=== PATIENT | female | born 1990 | race African-American/Black ===

== ENCOUNTER 2020-06-05 11:49 | Observation (INO) | payer MEDICAID ==
[~2020-06-05] VITALS: Ht 165.1 cm; Wt 103.4 kg
[2020-06-05 13:49] LABS: BASOPHILS % 0.6 % (0.0-2.0); HEMATOCRIT. 32.1 % (36.0-48.0); HEMOGLOBIN. 10.9 g/dL (12.0-16.0); LYMPHOCYTES % 14.7 % (20.0-50.0); MEAN CORPUSCULAR HEMOGLOBIN 29.8 pg (28.0-32.0); MEAN CORPUSCULAR VOLUME 87.8 fL (81.0-99.0); MEAN PLATELET VOLUME 8.2 fl (7.4-10.4); MONOCYTES % 5.6 % (2.0-8.0); NEUTROPHILS % 78.1 % (40.0-76.0); PLATELET 194 x1000/uL (130-400); RED BLOOD CELL COUNT 3.65 mill/uL (4.2-5.4); RED CELL DISTRIBUTION WIDTH 13.8 % (11.6-14.6)
[2020-06-05 13:53] LABS: CLARITY URINE CLOUDY (CLEAR); COLOR URINE YELLOW (YELLOW); KETONES URINE 1+ (NEGATIVE); LEUKOCYTE ESTERASE URINE 1+ (NEGATIVE); NITRITE URINE NEGATIVE (NEGATIVE); OCCULT BLOOD URINE NEGATIVE (NEGATIVE); PH URINE 6.5 (4.5-8.0); PROTEIN URINE NEGATIVE (NEGATIVE); SPECIFIC GRAVITY URINE 1.016 (1.005-1.030)
[2020-06-05 14:03] LABS: CHLORIDE 107 mEq/L (98-107)
[2020-06-05] MEDS ORDERED: PNV1TABL76 MT (14:16)
[2020-06-05 14:28] LABS: *AMPHETAMINES SCREEN URINE NEGATIVE (NEGATIVE); *BARBITURATES SCREEN URINE NEGATIVE (NEGATIVE); *BENZODIAZEPINES SCREEN URINE NEGATIVE (NEGATIVE); *COCAINE SCREEN URINE NEGATIVE (NEGATIVE)
[2020-06-05 14:29] LABS: METHADONE URINE SCREEN NEGATIVE (NEGATIVE); OPIATES URINE SCREEN NEGATIVE (NEGATIVE); PHENCYCLIDINE URINE SCREEN NEGATIVE (NEGATIVE)
[2020-06-05 14:30] LABS: CANNABINOID URINE SCREEN NEGATIVE (NEGATIVE)
[2020-06-05 15:04] LABS: HEPATITIS B SURFACE ANTIGEN NEGATIVE
== END 2020-06-05 15:20 | disposition home or self-care (01) ==
LOC: LAB 11:49 → 8 EST A/PP 11:50
PROVIDERS: ADMIT Obstetrics & Gynecology; ATTEND Obstetrics & Gynecology
DX: O26.893 Other specified pregnancy related conditions, third trimester (principal); Z20.828 Contact with and (suspected) exposure to other viral communicable diseases; R10.30 Lower abdominal pain, unspecified; O62.9 Abnormality of forces of labor, unspecified; O34.13 Maternal care for benign tumor of corpus uteri, third trimester; D25.9 Leiomyoma of uterus, unspecified; Z3A.39 39 weeks gestation of pregnancy; Z79.899 Other long term (current) drug therapy
CPT/HCPCS: 36415; 59025; 76805; 76818; 80053; 80305; 81003; 85025; 86592; 86703; 86762; 86850; 86900; 86901; 87340; G0378; U0003; 99281

== ENCOUNTER 2020-06-08 05:12 | Inpatient (IN) | payer MEDICAID ==
[~2020-06-08] VITALS: Ht 165.1 cm; Wt 103.4 kg
[~2020-06-08 05:12] MED LIST: PNV1TABL76 MT
[2020-06-08] MEDS ORDERED: DEXT 5%/LR + PITOCIN 20UNITS/L 1,000 ML IV SCH (05:52)
[2020-06-08] MEDS ORDERED: CARBOPROST TROMETHAMINE 250 MCG/ML AMPUL IM PRN (06:00)
[2020-06-08] MEDS ORDERED: METHYLERGONOVINE MALEATE 0.2 MG/ML IM PRN (06:00)
[2020-06-08] MEDS: LACTATED RINGERS 1,000 ML IV SCH ×2 (06:10→07:02)
[2020-06-08 07:07] LABS: INR 0.9; PARTIAL THROMBOPLASTIN TIME 25.9 sec (23.4-31.0); PROTHROMBIN TIME 9.9 sec (9.6-11.0)
[2020-06-08] MEDS ORDERED: KETOROLAC 60MG/2ML VIAL IM ONE (08:35)
[2020-06-08] MEDS ORDERED: CEFAZOLIN SODIUM 1000MG/VIAL ONE (08:36)
[2020-06-08] MEDS ORDERED: METOCLOPRAMIDE HCL 10MG/2ML VIAL ONE (08:36)
[2020-06-08] MEDS ORDERED: ONDANSETRON HCL 4MG/2ML INJ ONE (08:36)
[2020-06-08] MEDS ORDERED: OXYTOCIN 10 UNITS/ML 1ML ONE ×2 (08:36→10:22)
[2020-06-08] MEDS ORDERED: SODIUM CHLORIDE 0.9% 10ML VIAL ONE ×2 (08:36→08:37)
[2020-06-08] MEDS ORDERED: PHENYLEPHRINE HCL 10 MG/ML 1ML (IV VIAL) IV ONE (08:36)
[2020-06-08] MEDS ORDERED: FENTANYL CITRATE/PF 50MCG/ML 2ML VIAL ONE (08:40)
[2020-06-08] MEDS ORDERED: MORPHINE SULFATE/PF 1MG/ML 10ML AMP ONE (08:41)
[2020-06-08] MEDS ORDERED: HYDROCODONE/ACETAMINOPHEN 5/325MG TABLET PO PRN (11:00)
[2020-06-08] MEDS ORDERED: IBUPROFEN 400MG TABLET PO PRN (11:00)
[2020-06-08] MEDS ORDERED: ONDANSETRON HCL 4MG/2ML INJ IM PRN (11:00)
[2020-06-08] MEDS ORDERED: DIPHENHYDRAMINE 50MG/ML VIAL IM PRN (11:00)
[2020-06-08] MEDS ORDERED: KETOROLAC 30MG/ML VIAL IV PRN (11:00)
[2020-06-08] MEDS ORDERED: ONDANSETRON HCL 4MG/2ML INJ IV PRN (11:00)
[2020-06-08] MEDS ORDERED: NALOXONE HCL 0.4 MG/ML 1ML VIAL IV PRN (11:00)
[2020-06-08] MEDS ORDERED: LANOLIN OINT 7GM TUBE TOP PRN (11:00)
[2020-06-08] MEDS: DEXT 5%/LR + PITOCIN 20UNITS/L 1,000 ML IV SCH ×2 (11:07→21:08)
[2020-06-08 13:45] VITALS: BP 119/71
[2020-06-08] MEDS ORDERED: LACTATED RINGERS 1,000 ML IV SCH (14:30)
[2020-06-08 14:45] VITALS: BP 110/71
[2020-06-08 17:00] VITALS: BP 106/68
[2020-06-08 20:00] VITALS: BP 117/74
[2020-06-08] MEDS ORDERED: DIPHENHYDRAMINE 25MG CAPSULE PO PRN (21:00)
[2020-06-09] VITALS: BP 119/77
[2020-06-09 04:00] VITALS: BP 118/79
[2020-06-09] MEDS: IBUPROFEN 800MG TABLET PO PRN ×3 (05:38→21:51)
[2020-06-09 07:45] VITALS: BP 114/73
[2020-06-09 08:37] LABS: BASOPHILS % 0.6 % (0.0-2.0); EOSINOPHILS % 0.5 % (0.0-5.0); HEMATOCRIT. 30.8 % (36.0-48.0); HEMOGLOBIN. 10.5 g/dL (12.0-16.0); LYMPHOCYTES % 7.9 % (20.0-50.0); MEAN CORPUSCULAR HEMOGLOBIN 30.1 pg (28.0-32.0); MEAN CORPUSCULAR VOLUME 88.7 fL (81.0-99.0); MEAN PLATELET VOLUME 8.2 fl (7.4-10.4); MONOCYTES % 5.7 % (2.0-8.0); NEUTROPHILS % 85.3 % (40.0-76.0); PLATELET 185 x1000/uL (130-400); RED BLOOD CELL COUNT 3.47 mill/uL (4.2-5.4); RED CELL DISTRIBUTION WIDTH 14.1 % (11.6-14.6)
[2020-06-09] MEDS: SIMETHICONE 80MG TABLET CHEW PO SCH ×2 (08:56→21:52)
[2020-06-09] MEDS: PRENATAL VIT/FE FUMARATE/FA TABLET PO SCH (08:56)
[2020-06-09] MEDS: FERROUS SULFATE 325MG TABLET PO SCH (08:57)
[2020-06-09 15:00] VITALS: BP 116/76
[2020-06-09 19:30] VITALS: BP 100/70
[2020-06-09] MEDS: DOCUSATE SODIUM 100MG CAPSULE PO SCH ×2 (21:00→21:51)
[2020-06-09] MEDS: MAGNESIUM/ALUMINUM HYDROXIDE/SIMETHICONE 30ML UDC PO SCH (21:50)
[2020-06-09] MEDS: BISACODYL 10MG SUPP PR PRN ×2 (21:52→22:21)
[2020-06-09 23:45] VITALS: BP 112/72
[2020-06-10 04:00] VITALS: BP 111/72
[2020-06-10 08:00] VITALS: BP 128/86
[2020-06-10] MEDS: SIMETHICONE 80MG TABLET CHEW PO SCH ×2 (08:39→18:17)
[2020-06-10] MEDS: FERROUS SULFATE 325MG TABLET PO SCH (08:39)
[2020-06-10] MEDS: PRENATAL VIT/FE FUMARATE/FA TABLET PO SCH (08:39)
[2020-06-10] MEDS: MAGNESIUM/ALUMINUM HYDROXIDE/SIMETHICONE 30ML UDC PO SCH ×2 (08:40→18:17)
[2020-06-10] MEDS: IBUPROFEN 800MG TABLET PO PRN ×2 (08:40→18:17)
[2020-06-10 17:55] VITALS: BP 135/91
[2020-06-10 19:30] VITALS: BP 135/93
[2020-06-11] MEDS: MAGNESIUM/ALUMINUM HYDROXIDE/SIMETHICONE 30ML UDC PO SCH (00:02)
[2020-06-11] MEDS: IBUPROFEN 800MG TABLET PO PRN ×2 (00:03→07:58)
[2020-06-11] MEDS: SIMETHICONE 80MG TABLET CHEW PO SCH ×2 (00:03→07:58)
[2020-06-11] MEDS ORDERED: IBUP-2030 PO (05:21)
[2020-06-11] MEDS ORDERED: HYDR-4001 PO (05:21)
[2020-06-11] MEDS ORDERED: HYDR-4001 MT (05:25)
[2020-06-11] MEDS ORDERED: ACETAMINOPHEN WITH CODEINE 300/30MG TABLET PO PRN (06:15)
[2020-06-11] MEDS: PRENATAL VIT/FE FUMARATE/FA TABLET PO SCH (07:58)
[2020-06-11] MEDS: FERROUS SULFATE 325MG TABLET PO SCH (07:58)
[2020-06-11 08:00] VITALS: BP 130/72
== END 2020-06-11 12:45 | disposition home or self-care (01) | DRG 540 ==
LOC: OBSVTOIN 05:12 → 8 EST LDRP 05:12 → 8EST 13:31
PROVIDERS: ADMIT Obstetrics & Gynecology; ATTEND Obstetrics & Gynecology
PROC: 10D00Z1 Extraction of Products of Conception, Low, Open Approach (ICD-10-PCS; principal; 2020-06-08)
PROC: 0UB90ZZ Excision of Uterus, Open Approach (ICD-10-PCS; 2020-06-08)
DX: O34.211 Maternal care for low transverse scar from previous cesarean delivery (principal); O99.02 Anemia complicating childbirth; D64.9 Anemia, unspecified; O99.214 Obesity complicating childbirth; E66.9 Obesity, unspecified; O99.824 Streptococcus B carrier state complicating childbirth; O34.13 Maternal care for benign tumor of corpus uteri, third trimester; D25.0 Submucous leiomyoma of uterus; Z37.0 Single live birth; Z3A.09 9 weeks gestation of pregnancy; Z79.899 Other long term (current) drug therapy
CPT/HCPCS: 36415; 85025; 86850; 86900; 86920; 88307; J0690; J1200; J1885; J2274; J2370; J2405; J2590; J2765; J3010; J7120

== ENCOUNTER 2021-06-05 16:41 | Inpatient (IN) | payer MEDICAID, OTHER ==
[~2021-06-05] VITALS: Ht 165.1 cm; Wt 117.0 kg
[~2021-06-05 16:41] MED LIST changes: +IBUP-2030 PO
[2021-06-05] MEDS ORDERED: METHYLERGONOVINE MALEATE 0.2 MG/ML IM PRN (20:00)
[2021-06-05] MEDS ORDERED: DEXT 5%/LR + PITOCIN 20UNITS/L 1,000 ML IV SCH (20:00)
[2021-06-05] MEDS: LACTATED RINGERS 1,000 ML IV SCH ×3 (20:07→20:56)
[2021-06-05] MEDS ORDERED: LACTATED RINGERS 1,000 ML IV SCH (20:08)
[2021-06-05 20:39] LABS: BASOPHILS % 0.5 % (0.0-2.0); EOSINOPHILS % 0.5 % (0.0-5.0); HEMATOCRIT. 33.1 % (36.0-48.0); HEMOGLOBIN. 11.3 g/dL (12.0-16.0); LYMPHOCYTES % 11.7 % (20.0-50.0); MEAN CORPUSCULAR VOLUME 87.7 fL (81.0-99.0); MEAN PLATELET VOLUME 8.3 fl (7.4-10.4); MONOCYTES % 5.8 % (2.0-8.0); NEUTROPHILS % 81.5 % (40.0-76.0); PLATELET 231 x1000/uL (130-400); RED BLOOD CELL COUNT 3.78 mill/uL (4.2-5.4); RED CELL DISTRIBUTION WIDTH 14.6 % (11.6-14.6)
[2021-06-05 20:48] LABS: INR 0.9; PARTIAL THROMBOPLASTIN TIME 26.1 sec (23.4-31.0)
[2021-06-05] MEDS ORDERED: MORPHINE SULFATE/PF 1MG/ML 10ML AMP ONE (21:19)
[2021-06-05] MEDS ORDERED: ESMOLOL HCL 10MG/ML 10ML VIAL IV ONE (22:09)
[2021-06-05] MEDS ORDERED: ONDANSETRON HCL 4MG/2ML INJ ONE (22:09)
[2021-06-05] MEDS ORDERED: METOCLOPRAMIDE HCL 10MG/2ML VIAL ONE (22:09)
[2021-06-05] MEDS ORDERED: KETOROLAC 60MG/2ML VIAL IM ONE (22:09)
[2021-06-05] MEDS ORDERED: DEXAMETHASONE 4MG/ML 1ML VIAL ONE (22:09)
[2021-06-05] MEDS ORDERED: CEFAZOLIN SODIUM 1000MG/VIAL ONE (22:09)
[2021-06-05] MEDS ORDERED: OXYTOCIN 10 UNITS/ML 1ML ONE (22:09)
[2021-06-05] MEDS ORDERED: MEPERIDINE HCL/PF 25MG/ML CPJ IV PRN (22:15)
[2021-06-05] MEDS ORDERED: FENTANYL CITRATE/PF 50MCG/ML 2ML VIAL IV PRN (22:15)
[2021-06-05] MEDS ORDERED: ONDANSETRON HCL 4MG/2ML INJ IM PRN (22:15)
[2021-06-05] MEDS ORDERED: DIPHENHYDRAMINE 50MG/ML VIAL IM PRN (22:15)
[2021-06-05] MEDS ORDERED: NALOXONE HCL 0.4 MG/ML 1ML VIAL IV PRN (22:15)
[2021-06-05 22:18] LABS: HEPATITIS B SURFACE ANTIGEN NEGATIVE
[2021-06-05] MEDS ORDERED: KETOROLAC 30MG/ML VIAL IV PRN (22:45)
[2021-06-05] MEDS ORDERED: HYDROCODONE/ACETAMINOPHEN 5/325MG TABLET PO PRN (22:45)
[2021-06-05] MEDS ORDERED: RHO(D) IMMUNE GLOBULIN 300 MCG/SYR IM PRN (22:45)
[2021-06-05] MEDS ORDERED: IBUPROFEN 400MG TABLET PO PRN (22:45)
[2021-06-05] MEDS ORDERED: BISACODYL 10MG SUPP PR PRN (22:45)
[2021-06-05 23:39] LABS: CLARITY URINE CLEAR (CLEAR); COLOR URINE DARK YELLOW (YELLOW); KETONES URINE 4+ (NEGATIVE); LEUKOCYTE ESTERASE URINE TRACE (NEGATIVE); NITRITE URINE NEGATIVE (NEGATIVE); OCCULT BLOOD URINE NEGATIVE (NEGATIVE); PROTEIN URINE TRACE (NEGATIVE); SPECIFIC GRAVITY URINE 1.023 (1.005-1.030)
[2021-06-05] MEDS: DEXT 5%/LR + PITOCIN 20UNITS/L 1,000 ML IV SCH (23:48)
[2021-06-05 23:55] LABS: *AMPHETAMINES SCREEN URINE NEGATIVE (NEGATIVE); *BARBITURATES SCREEN URINE NEGATIVE (NEGATIVE); *BENZODIAZEPINES SCREEN URINE NEGATIVE (NEGATIVE); CANNABINOID URINE SCREEN NEGATIVE (NEGATIVE); METHADONE URINE SCREEN NEGATIVE (NEGATIVE); OPIATES URINE SCREEN NEGATIVE (NEGATIVE); PHENCYCLIDINE URINE SCREEN NEGATIVE (NEGATIVE)
[2021-06-05 23:58] LABS: *COCAINE SCREEN URINE NEGATIVE (NEGATIVE)
[2021-06-06] MEDS ORDERED: LABETALOL HCL 5MG/ML VIAL 20ML IV PRN ×3 (00:30)
[2021-06-06 01:51] LABS: HEMATOCRIT. 35.9 % (36.0-48.0); MEAN CORPUSCULAR HEMOGLOBIN 29.8 pg (28.0-32.0); MEAN CORPUSCULAR VOLUME 89.2 fL (81.0-99.0); MEAN PLATELET VOLUME 8.3 fl (7.4-10.4); PLATELET 237 x1000/uL (130-400); RED BLOOD CELL COUNT 4.03 mill/uL (4.2-5.4); RED CELL DISTRIBUTION WIDTH 14.1 % (11.6-14.6)
[2021-06-06 01:56] LABS: CHLORIDE 107 mEq/L (98-107); PLATELET ESTIMATE NORMAL
[2021-06-06] MEDS: MAGNESIUM 20 G PREMIX (L & D) 500 ML IV SCH ×2 (02:04→18:33)
[2021-06-06 02:07] LABS: D-DIMER 12.66 mg/L FEU (<0.50); INR 0.9; PARTIAL THROMBOPLASTIN TIME 26.8 sec (23.4-31.0); PROTHROMBIN TIME 10.2 sec (9.6-11.0)
[2021-06-06 07:30] VITALS: BP 136/86
[2021-06-06 08:32] LABS: HEMATOCRIT. 32.9 % (36.0-48.0); MEAN CORPUSCULAR HEMOGLOBIN 29.5 pg (28.0-32.0); MEAN CORPUSCULAR VOLUME 88.1 fL (81.0-99.0); MEAN PLATELET VOLUME 8.2 fl (7.4-10.4); PLATELET 223 x1000/uL (130-400); RED BLOOD CELL COUNT 3.73 mill/uL (4.2-5.4); RED CELL DISTRIBUTION WIDTH 14.8 % (11.6-14.6)
[2021-06-06] MEDS: PRENATAL VIT/FE FUMARATE/FA TABLET PO SCH (09:05)
[2021-06-06] MEDS: FERROUS SULFATE 325MG TABLET PO SCH ×2 (09:05→18:28)
[2021-06-06] MEDS: DEXT 5%/LR + PITOCIN 20UNITS/L 1,000 ML IV SCH ×2 (09:06→18:29)
[2021-06-06 13:56] LABS: PLATELET ESTIMATE NORMAL
[2021-06-06 15:00] VITALS: BP 123/74
[2021-06-06 18:30] VITALS: BP 118/73
[2021-06-06 20:15] VITALS: BP 116/78
[2021-06-07 00:05] VITALS: BP 124/86
[2021-06-07 02:00] VITALS: BP 131/84
[2021-06-07 04:45] VITALS: BP 139/84
[2021-06-07] MEDS: IBUPROFEN 800MG TABLET PO PRN ×2 (05:54→15:26)
[2021-06-07] MEDS: FERROUS SULFATE 325MG TABLET PO SCH ×3 (07:30→17:25)
[2021-06-07] MEDS: PRENATAL VIT/FE FUMARATE/FA TABLET PO SCH (08:00)
[2021-06-07 08:06] VITALS: BP 112/66
[2021-06-07 09:29] LABS: BASOPHILS % 0.3 % (0.0-2.0); EOSINOPHILS % 0.5 % (0.0-5.0); HEMATOCRIT. 30.6 % (36.0-48.0); HEMOGLOBIN. 10.1 g/dL (12.0-16.0); LYMPHOCYTES % 12.5 % (20.0-50.0); MEAN CORPUSCULAR HEMOGLOBIN 29.4 pg (28.0-32.0); MEAN CORPUSCULAR VOLUME 88.9 fL (81.0-99.0); MEAN PLATELET VOLUME 8.2 fl (7.4-10.4); MONOCYTES % 5.9 % (2.0-8.0); NEUTROPHILS % 80.8 % (40.0-76.0); PLATELET 203 x1000/uL (130-400); RED BLOOD CELL COUNT 3.44 mill/uL (4.2-5.4); RED CELL DISTRIBUTION WIDTH 14.8 % (11.6-14.6)
[2021-06-07 15:35] VITALS: BP 125/81
[2021-06-07 19:30] VITALS: BP 132/87
[2021-06-08] VITALS: BP 137/88
[2021-06-08] MEDS: IBUPROFEN 800MG TABLET PO PRN ×2 (02:20→09:11)
[2021-06-08 03:58] VITALS: BP 138/89
[2021-06-08] MEDS ORDERED: FERR325T23 PO (06:17)
[2021-06-08 06:53] LABS: HEMATOCRIT 29.7 % (36.0-48.0); HEMOGLOBIN 9.8 g/dL (12.0-16.0); MEAN CORPUSCULAR HEMOGLOBIN 29.6 pg (28.0-32.0); MEAN CORPUSCULAR VOLUME 90.1 fL (81.0-99.0); PLATELET 223 x1000/uL (130-400); RED CELL DISTRIBUTION WIDTH 14.8 % (11.6-14.6)
[2021-06-08 08:00] VITALS: BP 135/80
[2021-06-08] MEDS ORDERED: MEDROXYPROGESTERONE ACETATE 150MG/ML VIAL IM SCH (08:00)
[2021-06-08] MEDS: FERROUS SULFATE 325MG TABLET PO SCH (09:11)
[2021-06-08] MEDS: PRENATAL VIT/FE FUMARATE/FA TABLET PO SCH (09:11)
== END 2021-06-08 12:30 | disposition home or self-care (01) | DRG 540 ==
LOC: 8 EST LDRP 16:41 → OBSVTOIN 16:41 → 8EST 06-06 05:20
PROVIDERS: ADMIT Obstetrics & Gynecology; ATTEND Obstetrics & Gynecology
PROC: 10D00Z1 Extraction of Products of Conception, Low, Open Approach (ICD-10-PCS; principal; 2021-06-05)
DX: O77.0 Labor and delivery complicated by meconium in amniotic fluid (principal); D62 Acute posthemorrhagic anemia; O34.211 Maternal care for low transverse scar from previous cesarean delivery; O34.13 Maternal care for benign tumor of corpus uteri, third trimester; O99.214 Obesity complicating childbirth; O99.02 Anemia complicating childbirth; D25.9 Leiomyoma of uterus, unspecified; E66.01 Morbid (severe) obesity due to excess calories; Z3A.38 38 weeks gestation of pregnancy; Z37.0 Single live birth; Z20.822 Contact with and (suspected) exposure to COVID-19
CPT/HCPCS: 36415; 76805; 76818; 80053; 80305; 81003; 83735; 84550; 85025; 85027; 85379; 85384; 86592; 86703; 86762; 86850; 86900; 86920; 87340; 87426; 88307; G0378; J0690; J1050; J1100; J1885; J2274; J2405; J2590; J2765; J3475; J3490; A4315